=== PATIENT | male | born 1995 | race African-American/Black ===

== ENCOUNTER 2017-06-12 04:01 | Emergency (ER) | payer OTHER ==
[~2017-06-12] VITALS: Ht 172.7 cm; Wt 90.7 kg
[2017-06-12 04:20] VITALS: BP 157/103
== END 2017-06-12 07:34 | disposition left against medical advice (07) ==
LOC: EDBD 04:01 → ER 04:01
DX: N45.1 Epididymitis (principal)
CPT/HCPCS: 76870